=== PATIENT | female | born 1975 | race Caucasian/White ===

== ENCOUNTER → 2021-11-04 | Outpatient (CLI) | payer OTHER ==
[2021-11-08 13:09] LABS: B. HENSELAE IGG Negative titer (Neg:<1:320); B. HENSELAE IGM Negative titer (Neg:<1:100); B. QUINTANA IGG Negative titer (Neg:<1:320); B. QUINTANA IGM Negative titer (Neg:<1:100)
== END ==
LOC: LAB 19:35
PROVIDERS: Ophthalmology
DX: H30.90 Unspecified chorioretinal inflammation, unspecified eye (principal)
CPT/HCPCS: 86611

== ENCOUNTER → 2022-01-16 | Outpatient (CLI) | payer OTHER | LOC: RAD 14:25 | DX: M54.50 Low back pain, unspecified (principal); R20.2 Paresthesia of skin; M47.27 Other spondylosis with radiculopathy, lumbosacral region | CPT/HCPCS: 72110 ==